=== PATIENT | male | born 1970 | race Two or more races ===

== ENCOUNTER 2023-04-15 16:07 | Emergency (ER) | payer BC, OTHER ==
[~2023-04-15] VITALS: Ht 177.8 cm; Wt 83.0 kg
[2023-04-15] MEDS ORDERED: ACET650T12 PO (18:36)
[2023-04-15 18:37] VITALS: BP 151/107; PULSE 79; RESP 18; O2SAT 96
[2023-04-15] MEDS ORDERED: ACETAMINOPHEN 325 MG TAB PO ONE (18:45)
[2023-04-15 18:46] VITALS: TEMP 98.2
== END 2023-04-15 18:49 | disposition home or self-care (01) ==
LOC: ER 16:07
DX: R07.81 Pleurodynia (principal); J45.909 Unspecified asthma, uncomplicated; F17.210 Nicotine dependence, cigarettes, uncomplicated; Z79.899 Other long term (current) drug therapy; W11.XXXA Fall on and from ladder, initial encounter; Y93.89 Activity, other specified; Y92.89 Other specified places as the place of occurrence of the external cause; Y99.8 Other external cause status
CPT/HCPCS: 71101